=== PATIENT | female | born 1950 | race Caucasian/White ===

== ENCOUNTER → 2018-12-14 | Outpatient (CLI) | payer MEDICARE ==
[~2018-12-14] MED LIST: IOPAMIDOL 370 MG/ML 200 ML INFUS..BTL INJ ONE; SODIUM CHLORIDE 0.9% 100 ML 100 ML ONE
[2018-12-14 09:43] LABS: BLOOD UREA NITROGEN 12 mg/dL (7-26); BUN/CREATININE RATIO 16 (6-25); CREATININE, SERUM 0.77 mg/dL (0.57-1.11); EST GLOMERULAR FILTRATION RATE > 60 ML/MIN (60-)
--- NOTE | 2018-12-14 11:01 | Diagnostic Imaging Report ---
EXAMINATION: CT angiography of the abdomen, pelvis, and lower extremities with contrast. TECHNIQUE: Spiral CT images of the abdomen and pelvis and lower extremities were performed from the lung bases to the feet after the intravenous administration of 100 cc Isovue-370. Coronal and sagittal reformatted images were obtained. For optimization of anatomic definition, dedicated volume rendered reconstructions were generated on a stand-alone workstation under the direct supervision of the interpreting physician. COMPARISON: None. CLINICAL HISTORY:Right leg pain, peripheral vascular disease. DISCUSSION: Vasculature: Atherosclerotic plaque, calcified and noncalcified, involving the abdominal aorta and major visceral branches. The abdominal aorta is nonaneurysmal. There is mild SMA origin stenosis. Celiac, single bilateral renal artery, and LOLY origins are patent. Iliac inflow: Right: Patent proximal common iliac stent. Diffuse calcified and noncalcified atherosclerotic plaque throughout the iliac arterial system without significant stenosis. Internal iliac artery and central visceral branches are patent. Left: Patent proximal common iliac stent. Calcified and noncalcified atherosclerotic plaque elsewhere in the iliac arterial system, without significant stenosis. Internal iliac artery and central visceral branches are patent. Femoral-popliteal segments: Right: Common femoral artery is patent. Long segment stent complex extends from the distal common femoral artery through the entire course of the superficial femoral artery, terminating deep to the adductor hiatus at the above knee popliteal artery. There are scattered foci of moderate-severe in stent restenosis, with suspected critical stenosis proximally (series 3 image 131). The profunda femoris and muscular branches are patent. The above-knee and below-knee segments of popliteal artery are patent, without significant stenosis . Left: The common femoral artery is patent. The femoral bifurcation is patent. The profunda femoris artery and muscular branches are patent. The superficial femoral artery is patent with multiple foci of calcified and noncalcified atherosclerotic plaque. Short segment moderate stenosis at the abductor hiatus (series 3 image 179). The above-knee and below-knee popliteal artery are patent. Runoff: Right: Variant runoff anatomy with an early origin of the anterior tibial artery from the above knee popliteal artery at the level of the intercondylar notch of the femur (series 3 image 227). The anterior tibial artery is patent proximally, though occludes at the level of the proximal calf. The tibioperoneal trunk is patent. 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 Left: The anterior tibial artery is patent and is visualized to its continuation as the dorsalis pedis artery. The tibioperoneal trunk is patent. The posterior tibial artery is suspected to be hypoplastic, with a patent peroneal artery, which bifurcates at the tibiotalar joint and continues as the lateral plantar artery. ABDOMEN/PELVIS: LOWER THORAX:5 mm right lower lobe nodule (series 3 image 9). Postsurgical changes of median sternotomy and coronary artery bypass partially visualized. HEPATOBILIARY: No focal hepatic lesions. No intra-or extrahepatic biliary ductal dilation. The gallbladder has been removed. SPLEEN: Heterogeneity of splenic attenuation reflects arterial phase of scan. PANCREAS: 8 mm hyperenhancing nodule within the pancreatic tail (series 3 image 39). ADRENALS: No adrenal nodules. KIDNEYS/URETERS: No hydronephrosis, stones, or solid mass lesions. PELVIC ORGANS/BLADDER: Urinary bladder is incompletely distended. Uterus is anteflexed and appears normal. No adnexal mass. PERITONEUM/RETROPERITONEUM: No ascites. No pneumoperitoneum. LYMPH NODES: No pelvic sidewall, retroperitoneal, or mesenteric lymphadenopathy. VESSELS: As above. GI TRACT: The visualized large bowel shows no distention or wall thickening. Scattered descending and sigmoid colon diverticula without evidence of diverticulitis. Normal appendix. Stomach is collapsed with prominent rugal folds. No small bowel dilatation to suggest obstruction. BONES AND SOFT TISSUE: No osseous destructive lesions. Surgical clips along the medial right thigh related to venous graft harvest. Nonspecific subcutaneous edema involving the right calf and ankle. Asymmetric density in the right breast (series 3 image 27). IMPRESSION: Calcified and noncalcified atherosclerotic vascular disease throughout the abdominopelvic and lower extremity arterial systems. Nonaneurysmal abdominal aorta without significant visceral branch stenosis. Patent kissing common iliac arterial stents, without significant iliac inflow stenosis. Status post long segment endovascular stenting of the distal right common femoral artery and superficial femoral artery, with multiple foci of moderate-severe in-stent restenosis. Short segment focus of moderate stenosis in the distal left superficial femoral artery. 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 Single vessel runoff supplied by hypertrophic peroneal artery. 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 Two-vessel runoff supplied by hypertrophic peroneal artery and anterior tibial artery. Nonvascular findings include: 8 mm hyperenhancing nodule in the pancreatic tail which may represent a neuroendocrine tumor. Further characterization with MRI of the abdomen with and without contrast (pancreatic protocol) is suggested. 5 mm right lower lobe pulmonary nodule for which follow-up CT scan of the chest without contrast is suggested in one year if the patient has a history of smoking or is at otherwise increased risk of malignancy. Asymmetric right breast tissue should be evaluated by mammography. Large bowel diverticulosis without findings of diverticulitis. Signed by: Dr. Clay Shetty M.D. on 12/14/2018 10:57 AM
== END ==
LOC: CT 08:18
PROVIDERS: ATTEND Thoracic Surgery (Cardiothoracic Vascular Surgery)
DX: I70.0 Atherosclerosis of aorta (principal); I73.9 Peripheral vascular disease, unspecified
CPT/HCPCS: 36415; 75635; 82565; 84520; Q9967

== ENCOUNTER 2020-12-05 16:18 | Outpatient (RCR) | payer MEDICARE ==
[2020-12-05] MEDS ORDERED: LIDOCAINE VISC 2% SOLN 15 ML UDC ONE (17:00)
[2020-12-24] MEDS ORDERED: LIDOCAINE VISC 2% SOLN 15 ML UDC ONE (17:42)
[2020-12-24] MEDS ORDERED: MUPIROCIN 2% OINT 22 GM TUBE ONE (17:42)
[2020-12-24] MEDS ORDERED: LIDOCAINE/PRILOCAINE 2.5-2.5% KIT ONE (17:42)
[2020-12-24] MEDS ORDERED: MINERAL OIL/PETROLAT/GLYCERI 6OZ BTL ONE (17:42)
== END 2020-12-31 ==
LOC: WCC 16:18
PROVIDERS: ATTEND Family Medicine
DX: E11.628 Type 2 diabetes mellitus with other skin complications (principal); I87.311 Chronic venous hypertension (idiopathic) with ulcer of right lower extremity; L97.311 Non-pressure chronic ulcer of right ankle limited to breakdown of skin; I87.2 Venous insufficiency (chronic) (peripheral); R60.0 Localized edema; I10 Essential (primary) hypertension

== ENCOUNTER → 2021-01-08 | Outpatient (CLI) | payer MEDICARE | LOC: RAD 13:34 | PROVIDERS: ATTEND Family Medicine | DX: I87.2 Venous insufficiency (chronic) (peripheral) (principal); R60.0 Localized edema | CPT/HCPCS: 93922; 93925; 93970 ==

== ENCOUNTER 2021-01-09 08:42 | Outpatient (RCR) | payer MEDICARE ==
[2021-01-20] MEDS ORDERED: PLAVIX75 MG PO (05:39)
[2021-01-20] MEDS ORDERED: METFORMIN HCL500 MG PO (05:39)
[2021-01-20] MEDS ORDERED: METOPROLOL TART25 MG PO (05:39)
[2021-01-20] MEDS ORDERED: SIMVASTATIN40 MG PO (05:39)
[2021-01-20] MEDS ORDERED: CLONIDINE HCL0.1 MG PO (05:39)
[2021-01-20] MEDS ORDERED: ASPIRIN81 MG PO (05:39)
== END 2021-01-30 ==
LOC: WCC 08:42
PROVIDERS: ATTEND Family Medicine
DX: E11.628 Type 2 diabetes mellitus with other skin complications (principal); I87.311 Chronic venous hypertension (idiopathic) with ulcer of right lower extremity; L97.811 Non-pressure chronic ulcer of other part of right lower leg limited to breakdown of skin; L97.311 Non-pressure chronic ulcer of right ankle limited to breakdown of skin; S91.104A Unspecified open wound of right lesser toe(s) without damage to nail, initial encounter; S91.204A Unspecified open wound of right lesser toe(s) with damage to nail, initial encounter; I87.2 Venous insufficiency (chronic) (peripheral); S80.821A Blister (nonthermal), right lower leg, initial encounter; R60.0 Localized edema; I10 Essential (primary) hypertension; W22.09XA Striking against other stationary object, initial encounter

== ENCOUNTER 2021-01-20 05:07 | Inpatient (IN) | payer MEDICARE ==
[~2021-01-20] VITALS: Ht 165.1 cm; Wt 90.7 kg
[2021-01-20] MEDS ORDERED: METFORMIN HCL500 MG PO (05:39)
[2021-01-20] MEDS ORDERED: PLAVIX75 MG PO (05:39)
[2021-01-20] MEDS ORDERED: ASPIRIN81 MG PO (05:39)
[2021-01-20] MEDS ORDERED: METOPROLOL TART25 MG PO (05:39)
[2021-01-20] MEDS ORDERED: SIMVASTATIN40 MG PO (05:39)
[2021-01-20] MEDS ORDERED: CLONIDINE HCL0.1 MG PO (05:39)
[2021-01-20] MEDS ORDERED: SODIUM CHLORIDE 0.9% 1000ML 1,000 ML IV STA (05:41)
[2021-01-20] MEDS ORDERED: PIPERACILLIN/TAZOBACTAM 3.375 GM in SODIUM CHLORIDE 0.9% 50ML 50 ML IV STA (05:41)
[2021-01-20] MEDS ORDERED: VANCOMYCIN 1GM/NS 250 ML 250 ML IV ONE (05:45)
[2021-01-20 06:23] LABS: BASOPHILS % 0.3 % (0.0-1.0); EOSINOPHILS # (AUTO) 0.1 (0.0-0.4); EOSINOPHILS % 1.8 % (0.0-6.0); HEMATOCRIT 31.6 % (34.2-44.1); HEMOGLOBIN 10.3 g/dL (12.0-16.0); LYMPHOCYTES # (AUTO) 0.7 (1.0-3.2); LYMPHOCYTES % 10.7 % (18.0-39.1); MEAN CORPUSCULAR HEMOGLOBIN 28.8 pg (28-32); MEAN CORPUSCULAR HGB CONC 32.6 g/dL (31-35); MEAN CORPUSCULAR VOLUME 88.3 fL (81-99); MONOCYTES # (AUTO) 0.5 (0.2-0.8); NEUTROPHILS # (AUTO) 5.4 (2.1-6.9); NEUTROPHILS % 79.9 % (38.7-80.0); PLATELET COUNT 185 x10e3/uL (140-360); RED BLOOD COUNT 3.58 x10e6/uL (3.6-5.1); RED CELL DISTRIBUTION WIDTH 14.7 % (11.7-14.4)
[2021-01-20] MEDS ORDERED: MORPHINE SULFATE INJ 2 MG/ML SYR IV PRN (06:30)
[2021-01-20] MEDS ORDERED: SODIUM CHLORIDE 0.9% 1000ML 1,000 ML IV SCH (06:30)
[2021-01-20] MEDS ORDERED: ONDANSETRON HCL INJ 2MG/ML 2ML 2 MG/ML VIAL IV PRN (06:30)
[2021-01-20] MEDS ORDERED: DEXTROSE 50% SYRINGE 50 ML IV PRN (06:30)
[2021-01-20 06:38] LABS: ALBUMIN 2.8 g/dL (3.5-5.0); ALBUMIN/GLOBULIN RATIO 0.7 (0.8-2.0); ANION GAP 13.5 mmol/L (8-16); CALCIUM 8.7 mg/dL (8.4-10.2); CREATININE, SERUM 1.63 mg/dL (0.57-1.11); MAGNESIUM 1.7 MG/DL (1.3-2.1); POTASSIUM 4.5 mmol/L (3.5-5.1)
[2021-01-20 06:44] LABS: CREATINE KINASE MB 2.9 ng/mL (0-5.0)
[2021-01-20 06:54] LABS: B-TYPE NATRIURETIC PEPTIDE2 151.6 pg/mL (0-100)
[2021-01-20] MEDS ORDERED: TETANUS/DIPHTHERIA TOX ADULT 0.5 ML SYR IM ONE (07:15)
[2021-01-20] MEDS: INSULIN LISPRO 100 UNIT/1 ML 3ML VIAL SQ SCH ×4 (08:30→20:40)
[2021-01-20 12:36] LABS: CREATINE KINASE MB 6.9 ng/mL (0-5.0)
[2021-01-20] MEDS: PIPERACILLIN/TAZOBACTAM 2.25 GM in SODIUM CHLORIDE 0.9% 50ML 50 ML IV SCH ×3 (12:41→23:36)
[2021-01-20] MEDS: Vancomycin IV 1 GM in SODIUM CHLORIDE 0.9% 250ML 250 ML IV SCH (14:00)
[2021-01-20] MEDS: CLONIDINE HCL 0.1 MG TAB PO SCH ×2 (14:38→22:00)
[2021-01-20] MEDS: ASPIRIN 81 MG CHEW TAB PO SCH (14:38)
[2021-01-20] MEDS: CLOPIDOGREL BISULFATE 75 MG TAB PO SCH (14:38)
[2021-01-20] MEDS ORDERED: DIPHENHYDRAMINE HCL 25 MG CAP PO PRN (16:00)
[2021-01-20] MEDS: METOPROLOL TARTRATE 25 MG TAB PO SCH (17:30)
[2021-01-20] MEDS: ENOXAPARIN SOD INJ 40 MG/0.4 ML SYR SC SCH (18:00)
[2021-01-20] MEDS: SIMVASTATIN 40 MG TAB PO SCH (20:39)
[2021-01-21 01:19] LABS: MAGNESIUM 1.5 MG/DL (1.3-2.1)
[2021-01-21 01:30] LABS: CREATINE KINASE MB 11.9 ng/mL (0-5.0)
[2021-01-21 01:39] LABS: THYROID STIMULATING HORMONE 0.716 uIU/mL (0.350-4.940)
[2021-01-21 01:43] LABS: ANION GAP 12.3 mmol/L (8-16); CALCIUM 8.5 mg/dL (8.4-10.2); CREATININE, SERUM 1.19 mg/dL (0.57-1.11); POTASSIUM 5.3 mmol/L (3.5-5.1)
[2021-01-21] MEDS ORDERED: SODIUM CHLORIDE 0.9% 500ML 500 ML ONE (03:17)
[2021-01-21] MEDS: CLONIDINE HCL 0.1 MG TAB PO SCH ×3 (05:02→22:00)
[2021-01-21] MEDS: PIPERACILLIN/TAZOBACTAM 2.25 GM in SODIUM CHLORIDE 0.9% 50ML 50 ML IV SCH ×3 (05:02→18:00)
[2021-01-21 05:52] LABS: BASOPHILS # (AUTO) 0.1 (0.0-0.1); BASOPHILS % 0.6 % (0.0-1.0); EOSINOPHILS # (AUTO) 0.1 (0.0-0.4); EOSINOPHILS % 1.1 % (0.0-6.0); HEMATOCRIT 35.1 % (34.2-44.1); HEMOGLOBIN 11.4 g/dL (12.0-16.0); LYMPHOCYTES # (AUTO) 1.2 (1.0-3.2); LYMPHOCYTES % 9.8 % (18.0-39.1); MEAN CORPUSCULAR HEMOGLOBIN 29.2 pg (28-32); MEAN CORPUSCULAR HGB CONC 32.5 g/dL (31-35); MONOCYTES # (AUTO) 0.7 (0.2-0.8); MONOCYTES % 5.9 % (4.4-11.3); NEUTROPHILS # (AUTO) 9.8 (2.1-6.9); NEUTROPHILS % 82.1 % (38.7-80.0); PLATELET COUNT 212 x10e3/uL (140-360); RED CELL DISTRIBUTION WIDTH 14.8 % (11.7-14.4)
[2021-01-21 06:13] LABS: ALBUMIN 2.7 g/dL (3.5-5.0); ALBUMIN/GLOBULIN RATIO 0.6 (0.8-2.0); ANION GAP 14.4 mmol/L (8-16); CALCIUM 8.5 mg/dL (8.4-10.2); CREATININE, SERUM 1.16 mg/dL (0.57-1.11); POTASSIUM 4.4 mmol/L (3.5-5.1)
[2021-01-21] MEDS: INSULIN LISPRO 100 UNIT/1 ML 3ML VIAL SQ SCH ×4 (07:30→21:00)
[2021-01-21] MEDS: METOPROLOL TARTRATE 25 MG TAB PO SCH ×2 (08:22→17:00)
[2021-01-21] MEDS: MUPIROCIN 2% OINT 22 GM TUBE TOP SCH (09:00)
[2021-01-21] MEDS ORDERED: ASPIRIN 81 MG CHEW TAB PO SCH (09:00)
[2021-01-21] MEDS ORDERED: CLOPIDOGREL BISULFATE 75 MG TAB PO SCH (09:00)
[2021-01-21] MEDS: CLOPIDOGREL BISULFATE 75 MG TAB PO SCH (10:00)
[2021-01-21] MEDS: ASPIRIN 81 MG CHEW TAB PO SCH (10:00)
[2021-01-21] MEDS: ENOXAPARIN SOD INJ 40 MG/0.4 ML SYR SC SCH (10:00)
[2021-01-21] MEDS: Vancomycin IV 1 GM in SODIUM CHLORIDE 0.9% 250ML 250 ML IV SCH (12:00)
[2021-01-21] MEDS ORDERED: SODIUM CHLORIDE 0.9% 1000ML 1,000 ML ONE (18:26)
[2021-01-21] MEDS ORDERED: SODIUM CHLORIDE 0.9% 100 ML ONE (19:55)
[2021-01-21] MEDS ORDERED: IOPAMIDOL 370 MG/ML 200 ML INFUS..BTL INJ ONE (19:56)
[2021-01-21] MEDS: SIMVASTATIN 40 MG TAB PO SCH (21:00)
[2021-01-22 04:00] VITALS: BP 175/58
[2021-01-22] MEDS: PIPERACILLIN/TAZOBACTAM 2.25 GM in SODIUM CHLORIDE 0.9% 50ML 50 ML IV SCH ×5 (06:00→17:30)
[2021-01-22] MEDS: CLONIDINE HCL 0.1 MG TAB PO SCH ×3 (06:00→22:00)
[2021-01-22] MEDS: INSULIN LISPRO 100 UNIT/1 ML 3ML VIAL SQ SCH ×4 (07:30→21:00)
[2021-01-22] MEDS: MUPIROCIN 2% OINT 22 GM TUBE TOP SCH (09:00)
[2021-01-22] MEDS ORDERED: SODIUM CHLORIDE 0.9% 1000ML 1,000 ML IV SCH (09:00)
[2021-01-22] MEDS: ASPIRIN 81 MG CHEW TAB PO SCH (09:00)
[2021-01-22] MEDS: METOPROLOL TARTRATE 25 MG TAB PO SCH ×2 (09:00→17:30)
[2021-01-22 10:38] LABS: ALBUMIN 2.4 g/dL (3.5-5.0); ALBUMIN/GLOBULIN RATIO 0.6 (0.8-2.0); ANION GAP 12.6 mmol/L (8-16); CALCIUM 8.5 mg/dL (8.4-10.2); CHOL/HDL RATIO 3.5 (3.0-3.6); CREATININE, SERUM 0.97 mg/dL (0.57-1.11); POTASSIUM 4.6 mmol/L (3.5-5.1)
[2021-01-22 10:39] LABS: BASOPHILS % 0.4 % (0.0-1.0); EOSINOPHILS # (AUTO) 0.5 (0.0-0.4); EOSINOPHILS % 2.7 % (0.0-6.0); HEMATOCRIT 32.3 % (34.2-44.1); HEMOGLOBIN 10.2 g/dL (12.0-16.0); LYMPHOCYTES # (AUTO) 0.8 (1.0-3.2); LYMPHOCYTES % 10.5 % (18.0-39.1); MEAN CORPUSCULAR HEMOGLOBIN 28.4 pg (28-32); MEAN CORPUSCULAR HGB CONC 31.6 g/dL (31-35); MONOCYTES # (AUTO) 0.5 (0.2-0.8); MONOCYTES % 6.3 % (4.4-11.3); NEUTROPHILS # (AUTO) 5.8 (2.1-6.9); NEUTROPHILS % 79.6 % (38.7-80.0); PLATELET COUNT 187 x10e3/uL (140-360); RED BLOOD COUNT 3.59 x10e6/uL (3.6-5.1); RED CELL DISTRIBUTION WIDTH 14.8 % (11.7-14.4)
[2021-01-22] MEDS ORDERED: MIDAZOLAM HCL 2 MG/2 ML VIAL ONE (11:37)
[2021-01-22] MEDS ORDERED: FENTANYL CITRATE/PF 100MCG/2 ML INJ ONE (11:37)
[2021-01-22] MEDS ORDERED: LIDOCAINE HCL 2% LOCAL 20 ML VIAL ONE (11:37)
[2021-01-22] MEDS ORDERED: IOPAMIDOL 300MG/ML 100 ML INFUS..BTL IV ONE (11:38)
[2021-01-22] MEDS ORDERED: HEPARIN SOD/SOD CHLORIDE 2,000 ML ONE (11:38)
[2021-01-22] MEDS ORDERED: SODIUM CHLORIDE 0.9% 1000ML 1,000 ML ONE (11:38)
[2021-01-22] MEDS: Vancomycin IV 1 GM in SODIUM CHLORIDE 0.9% 250ML 250 ML IV SCH (12:00)
[2021-01-22] MEDS: SODIUM CHLORIDE 0.9% 1000ML 1,000 ML IV SCH (14:15)
[2021-01-22] MEDS ORDERED: MAGNESIUM HYDROXIDE 30 ML UDC PO PRN (14:15)
[2021-01-22] MEDS: SENNA-S TABLET PO SCH (17:30)
[2021-01-22] MEDS: HYDROCODONE/APAP 10MG-325MG TAB PO PRN (19:12)
[2021-01-22 20:00] VITALS: BP 178/59
[2021-01-22] MEDS: SIMVASTATIN 40 MG TAB PO SCH (21:00)
[2021-01-23] VITALS (8 sets, daily range): BP systolic 153–180; BP diastolic 52–89
[2021-01-23] MEDS: SODIUM CHLORIDE 0.9% 1000ML 1,000 ML IV SCH ×2 (03:35→17:45)
[2021-01-23 05:55] LABS: BASOPHILS % 0.6 % (0.0-1.0); EOSINOPHILS # (AUTO) 0.2 (0.0-0.4); EOSINOPHILS % 2.2 % (0.0-6.0); HEMATOCRIT 31.1 % (34.2-44.1); LYMPHOCYTES # (AUTO) 0.9 (1.0-3.2); MEAN CORPUSCULAR HEMOGLOBIN 28.8 pg (28-32); MEAN CORPUSCULAR HGB CONC 32.2 g/dL (31-35); MEAN CORPUSCULAR VOLUME 89.6 fL (81-99); MONOCYTES # (AUTO) 0.5 (0.2-0.8); NEUTROPHILS # (AUTO) 5.1 (2.1-6.9); NEUTROPHILS % 76.6 % (38.7-80.0); PLATELET COUNT 190 x10e3/uL (140-360); RED BLOOD COUNT 3.47 x10e6/uL (3.6-5.1); RED CELL DISTRIBUTION WIDTH 14.7 % (11.7-14.4)
[2021-01-23] MEDS: PIPERACILLIN/TAZOBACTAM 2.25 GM in SODIUM CHLORIDE 0.9% 50ML 50 ML IV SCH ×5 (06:00→17:06)
[2021-01-23] MEDS: CLONIDINE HCL 0.1 MG TAB PO SCH ×3 (06:00→21:00)
[2021-01-23 06:30] LABS: ALBUMIN 2.2 g/dL (3.5-5.0); ALBUMIN/GLOBULIN RATIO 0.6 (0.8-2.0); ANION GAP 11.2 mmol/L (8-16); CALCIUM 7.9 mg/dL (8.4-10.2); CREATININE, SERUM 0.81 mg/dL (0.57-1.11); POTASSIUM 4.2 mmol/L (3.5-5.1)
[2021-01-23] MEDS: ASPIRIN 81 MG CHEW TAB PO SCH (09:29)
[2021-01-23] MEDS: METOPROLOL TARTRATE 25 MG TAB PO SCH ×2 (09:30→17:05)
[2021-01-23] MEDS: SENNA-S TABLET PO SCH ×2 (09:32→17:06)
[2021-01-23] MEDS: MUPIROCIN 2% OINT 22 GM TUBE TOP SCH (09:32)
[2021-01-23] MEDS: INSULIN LISPRO 100 UNIT/1 ML 3ML VIAL SQ SCH ×4 (09:39→21:00)
[2021-01-23] MEDS: AMLODIPINE BESYLATE 5 MG TAB PO SCH (09:39)
[2021-01-23] MEDS ORDERED: CLOPIDOGREL BISULFATE 75 MG TAB PO ONE (11:45)
[2021-01-23] MEDS: Vancomycin IV 1 GM in SODIUM CHLORIDE 0.9% 250ML 250 ML IV SCH (12:22)
[2021-01-23] MEDS: HYDROCODONE/APAP 10MG-325MG TAB PO PRN ×2 (12:42→21:19)
[2021-01-23] MEDS: SIMVASTATIN 40 MG TAB PO SCH (20:59)
[2021-01-24] VITALS (8 sets, daily range): BP systolic 141–188; BP diastolic 54–122
[2021-01-24] MEDS: PIPERACILLIN/TAZOBACTAM 2.25 GM in SODIUM CHLORIDE 0.9% 50ML 50 ML IV SCH ×4 (00:35→16:45)
[2021-01-24] MEDS: MUPIROCIN 2% OINT 22 GM TUBE TOP SCH ×2 (02:31→08:56)
[2021-01-24] MEDS: HYDROCODONE/APAP 10MG-325MG TAB PO PRN ×2 (04:58→11:45)
[2021-01-24] MEDS: SODIUM CHLORIDE 0.9% 1000ML 1,000 ML IV SCH (05:03)
[2021-01-24] MEDS: CLONIDINE HCL 0.1 MG TAB PO SCH ×3 (05:03→21:20)
[2021-01-24] MEDS: ASPIRIN 81 MG CHEW TAB PO SCH (08:54)
[2021-01-24] MEDS: INSULIN LISPRO 100 UNIT/1 ML 3ML VIAL SQ SCH ×4 (08:54→21:23)
[2021-01-24] MEDS: AMLODIPINE BESYLATE 5 MG TAB PO SCH (08:55)
[2021-01-24] MEDS: SENNA-S TABLET PO SCH ×2 (08:55→16:45)
[2021-01-24] MEDS: METOPROLOL TARTRATE 25 MG TAB PO SCH ×2 (08:55→16:44)
[2021-01-24] MEDS: CLOPIDOGREL BISULFATE 75 MG TAB PO SCH (08:55)
[2021-01-24] MEDS: Vancomycin IV 1 GM in SODIUM CHLORIDE 0.9% 250ML 250 ML IV SCH (13:52)
[2021-01-24] MEDS: ENOXAPARIN SOD INJ 40 MG/0.4 ML SYR SC SCH (16:45)
[2021-01-24] MEDS: SIMVASTATIN 40 MG TAB PO SCH (22:48)
[2021-01-25] VITALS (8 sets, daily range): BP systolic 160–197; BP diastolic 52–79
[2021-01-25] MEDS: PIPERACILLIN/TAZOBACTAM 2.25 GM in SODIUM CHLORIDE 0.9% 50ML 50 ML IV SCH ×4 (00:42→18:00)
[2021-01-25] MEDS: HYDROCODONE/APAP 10MG-325MG TAB PO PRN ×3 (00:43→15:59)
[2021-01-25 05:30] LABS: BASOPHILS % 0.6 % (0.0-1.0); EOSINOPHILS # (AUTO) 0.2 (0.0-0.4); EOSINOPHILS % 2.4 % (0.0-6.0); HEMOGLOBIN 10.2 g/dL (12.0-16.0); LYMPHOCYTES # (AUTO) 0.9 (1.0-3.2); LYMPHOCYTES % 13.3 % (18.0-39.1); MEAN CORPUSCULAR HGB CONC 31.9 g/dL (31-35); MEAN CORPUSCULAR VOLUME 87.9 fL (81-99); MONOCYTES # (AUTO) 0.6 (0.2-0.8); MONOCYTES % 8.4 % (4.4-11.3); NEUTROPHILS % 74.4 % (38.7-80.0); PLATELET COUNT 218 x10e3/uL (140-360); RED BLOOD COUNT 3.64 x10e6/uL (3.6-5.1); RED CELL DISTRIBUTION WIDTH 14.7 % (11.7-14.4)
[2021-01-25 05:54] LABS: ANION GAP 12.7 mmol/L (8-16); CALCIUM 8.5 mg/dL (8.4-10.2); CREATININE, SERUM 0.71 mg/dL (0.57-1.11); POTASSIUM 3.7 mmol/L (3.5-5.1)
[2021-01-25] MEDS: INSULIN LISPRO 100 UNIT/1 ML 3ML VIAL SQ SCH ×4 (07:30→22:49)
[2021-01-25] MEDS: CLONIDINE HCL 0.1 MG TAB PO SCH ×3 (07:48→22:38)
[2021-01-25] MEDS: MUPIROCIN 2% OINT 22 GM TUBE TOP SCH (09:00)
[2021-01-25] MEDS: AMLODIPINE BESYLATE 5 MG TAB PO SCH (09:00)
[2021-01-25] MEDS: SENNA-S TABLET PO SCH ×2 (09:00→16:32)
[2021-01-25] MEDS: CLOPIDOGREL BISULFATE 75 MG TAB PO SCH (09:00)
[2021-01-25] MEDS: ASPIRIN 81 MG CHEW TAB PO SCH (09:00)
[2021-01-25] MEDS: METOPROLOL TARTRATE 25 MG TAB PO SCH ×2 (09:00→16:31)
[2021-01-25] MEDS: Vancomycin IV 1 GM in SODIUM CHLORIDE 0.9% 250ML 250 ML IV SCH (12:00)
[2021-01-25] MEDS: ENOXAPARIN SOD INJ 40 MG/0.4 ML SYR SC SCH (16:32)
[2021-01-25] MEDS: SIMVASTATIN 40 MG TAB PO SCH (22:36)
[2021-01-26] VITALS (8 sets, daily range): BP systolic 171–192; BP diastolic 59–74
[2021-01-26] MEDS: HYDROMORPHONE 1MG/1ML INJ IV PRN (00:03)
[2021-01-26] MEDS: PIPERACILLIN/TAZOBACTAM 2.25 GM in SODIUM CHLORIDE 0.9% 50ML 50 ML IV SCH ×4 (00:03→17:05)
[2021-01-26] MEDS: CLONIDINE HCL 0.1 MG TAB PO SCH ×3 (06:27→21:57)
[2021-01-26] MEDS: INSULIN LISPRO 100 UNIT/1 ML 3ML VIAL SQ SCH ×4 (07:30→21:57)
[2021-01-26] MEDS: SENNA-S TABLET PO SCH ×2 (09:00→17:00)
[2021-01-26] MEDS: AMLODIPINE BESYLATE 5 MG TAB PO SCH (09:00)
[2021-01-26] MEDS: METOPROLOL TARTRATE 25 MG TAB PO SCH ×2 (09:00→17:00)
[2021-01-26] MEDS: MUPIROCIN 2% OINT 22 GM TUBE TOP SCH (09:00)
[2021-01-26] MEDS: CLOPIDOGREL BISULFATE 75 MG TAB PO SCH (09:00)
[2021-01-26] MEDS: ASPIRIN 81 MG CHEW TAB PO SCH (09:00)
[2021-01-26] MEDS: HYDROCODONE/APAP 10MG-325MG TAB PO PRN ×2 (11:45→17:55)
[2021-01-26] MEDS: Vancomycin IV 1 GM in SODIUM CHLORIDE 0.9% 250ML 250 ML IV SCH (12:00)
[2021-01-26 12:53] LABS: BASOPHILS # (AUTO) 0.1 (0.0-0.1); BASOPHILS % 0.8 % (0.0-1.0); EOSINOPHILS # (AUTO) 0.2 (0.0-0.4); EOSINOPHILS % 2.9 % (0.0-6.0); HEMATOCRIT 33.4 % (34.2-44.1); HEMOGLOBIN 10.4 g/dL (12.0-16.0); LYMPHOCYTES # (AUTO) 0.7 (1.0-3.2); LYMPHOCYTES % 9.3 % (18.0-39.1); MEAN CORPUSCULAR HEMOGLOBIN 27.7 pg (28-32); MEAN CORPUSCULAR HGB CONC 31.1 g/dL (31-35); MEAN CORPUSCULAR VOLUME 89.1 fL (81-99); MONOCYTES # (AUTO) 0.5 (0.2-0.8); MONOCYTES % 6.3 % (4.4-11.3); NEUTROPHILS # (AUTO) 6.2 (2.1-6.9); NEUTROPHILS % 79.8 % (38.7-80.0); PLATELET COUNT 250 x10e3/uL (140-360); RED BLOOD COUNT 3.75 x10e6/uL (3.6-5.1); RED CELL DISTRIBUTION WIDTH 14.6 % (11.7-14.4)
[2021-01-26 13:06] LABS: INR 1.2; PROTHROMBIN TIME 15.9 seconds (11.9-14.5)
[2021-01-26 13:30] LABS: ANION GAP 16.9 mmol/L (8-16); CALCIUM 8.3 mg/dL (8.4-10.2); CREATININE, SERUM 0.73 mg/dL (0.57-1.11); POTASSIUM 3.9 mmol/L (3.5-5.1)
[2021-01-26] MEDS: ENOXAPARIN SOD INJ 40 MG/0.4 ML SYR SC SCH (17:00)
[2021-01-26] MEDS: SIMVASTATIN 40 MG TAB PO SCH (21:56)
[2021-01-27] VITALS (8 sets, daily range): BP systolic 171–198; BP diastolic 51–72
[2021-01-27] MEDS: PIPERACILLIN/TAZOBACTAM 2.25 GM in SODIUM CHLORIDE 0.9% 50ML 50 ML IV SCH ×4 (00:46→17:21)
[2021-01-27] MEDS: CLONIDINE HCL 0.1 MG TAB PO SCH ×3 (06:00→21:59)
[2021-01-27] MEDS: INSULIN LISPRO 100 UNIT/1 ML 3ML VIAL SQ SCH ×4 (07:30→21:00)
[2021-01-27] MEDS: METOPROLOL TARTRATE 25 MG TAB PO SCH ×2 (08:31→17:00)
[2021-01-27] MEDS: SENNA-S TABLET PO SCH ×2 (08:32→17:00)
[2021-01-27] MEDS: AMLODIPINE BESYLATE 5 MG TAB PO SCH (08:32)
[2021-01-27] MEDS: MUPIROCIN 2% OINT 22 GM TUBE TOP SCH (08:32)
[2021-01-27] MEDS: HYDROCODONE/APAP 10MG-325MG TAB PO PRN ×2 (11:11→18:33)
[2021-01-27] MEDS: Vancomycin IV 1 GM in SODIUM CHLORIDE 0.9% 250ML 250 ML IV SCH (12:00)
[2021-01-27] MEDS: ENOXAPARIN SOD INJ 40 MG/0.4 ML SYR SC SCH (15:38)
[2021-01-27] MEDS: SIMVASTATIN 40 MG TAB PO SCH (21:58)
[2021-01-27] MEDS: HYDROMORPHONE 1MG/1ML INJ IV PRN (22:00)
[2021-01-27] MEDS: CARVEDILOL 12.5 MG TAB PO SCH (22:37)
[2021-01-28] VITALS (7 sets, daily range): BP systolic 141–180; BP diastolic 43–64
[2021-01-28] MEDS: PIPERACILLIN/TAZOBACTAM 2.25 GM in SODIUM CHLORIDE 0.9% 50ML 50 ML IV SCH ×4 (05:35→12:37)
[2021-01-28] MEDS: CLONIDINE HCL 0.1 MG TAB PO SCH ×3 (05:55→22:53)
[2021-01-28] MEDS: INSULIN LISPRO 100 UNIT/1 ML 3ML VIAL SQ SCH ×4 (07:30→21:00)
[2021-01-28] MEDS ORDERED: MUPIROCIN 2% OINT 22 GM TUBE ONE (07:56)
[2021-01-28] MEDS ORDERED: BETAMETHASONE DISODIUM PHOS 6 MG/ML VIAL ONE (07:56)
[2021-01-28] MEDS ORDERED: BUPIVACAINE HCL 0.5% INJ 30 ML VIAL INJ ONE (07:56)
[2021-01-28] MEDS ORDERED: LIDOCAINE HCL 1% LOCAL INJ 20 ML VIAL ONE (07:56)
[2021-01-28] MEDS ORDERED: SODIUM CHLORIDE 0.9% 250ML 0 ML ONE (08:16)
[2021-01-28] MEDS ORDERED: Vancomycin IV 500 MG ONE (08:17)
[2021-01-28] MEDS ORDERED: SODIUM CHLORIDE 0.9% 500ML 500 ML ONE (08:19)
[2021-01-28] MEDS ORDERED: SEVOFLURANE INHAL SOLN 250 ML PEN BTL ONE (10:07)
[2021-01-28] MEDS ORDERED: LIDOCAINE HCL 2% LOCAL INJ 5 ML SDV VIAL INJ ONE (10:07)
[2021-01-28] MEDS ORDERED: LIDOCAINE HCL 2% JELLY 5 ML TUBE ONE (10:07)
[2021-01-28] MEDS ORDERED: ONDANSETRON HCL INJ 2MG/ML 2ML 2 MG/ML VIAL ONE (10:07)
[2021-01-28] MEDS ORDERED: POVIDONE IODINE 0.05% 0.05 % ML PO ONE (10:07)
[2021-01-28] MEDS ORDERED: PROPOFOL IV EMULSION 10 MG/ML 20 ML VIAL ONE (10:07)
[2021-01-28] MEDS ORDERED: FENTANYL CITRATE/PF 100MCG/2 ML INJ ONE (12:28)
[2021-01-28] MEDS: CARVEDILOL 12.5 MG TAB PO SCH ×2 (12:38→16:50)
[2021-01-28] MEDS: AMLODIPINE BESYLATE 5 MG TAB PO SCH (12:38)
[2021-01-28] MEDS: SENNA-S TABLET PO SCH ×2 (12:38→16:50)
[2021-01-28] MEDS: ASPIRIN 81 MG CHEW TAB PO SCH ×2 (12:38→12:39)
[2021-01-28] MEDS: CLOPIDOGREL BISULFATE 75 MG TAB PO SCH (12:39)
[2021-01-28] MEDS: Vancomycin IV 1 GM in SODIUM CHLORIDE 0.9% 250ML 250 ML IV SCH (13:15)
[2021-01-28] MEDS: ENOXAPARIN SOD INJ 40 MG/0.4 ML SYR SC SCH (16:41)
[2021-01-28] MEDS: HYDROCODONE/APAP 10MG-325MG TAB PO PRN (17:30)
[2021-01-28] MEDS: SIMVASTATIN 40 MG TAB PO SCH (21:00)
[2021-01-28] MEDS: HYDROMORPHONE 1MG/1ML INJ IV PRN (22:49)
[2021-01-29] VITALS (9 sets, daily range): BP systolic 134–167; BP diastolic 42–57
[2021-01-29 06:26] LABS: BASOPHILS % 0.7 % (0.0-1.0); EOSINOPHILS # (AUTO) 0.2 (0.0-0.4); HEMATOCRIT 31.5 % (34.2-44.1); HEMOGLOBIN 9.9 g/dL (12.0-16.0); LYMPHOCYTES # (AUTO) 1.1 (1.0-3.2); LYMPHOCYTES % 17.5 % (18.0-39.1); MEAN CORPUSCULAR HEMOGLOBIN 28.2 pg (28-32); MEAN CORPUSCULAR HGB CONC 31.4 g/dL (31-35); MEAN CORPUSCULAR VOLUME 89.7 fL (81-99); MONOCYTES # (AUTO) 0.6 (0.2-0.8); MONOCYTES % 10.6 % (4.4-11.3); NEUTROPHILS % 66.5 % (38.7-80.0); PLATELET COUNT 202 x10e3/uL (140-360); RED BLOOD COUNT 3.51 x10e6/uL (3.6-5.1); RED CELL DISTRIBUTION WIDTH 15.5 % (11.7-14.4)
[2021-01-29] MEDS: CLONIDINE HCL 0.1 MG TAB PO SCH ×3 (06:43→22:00)
[2021-01-29 06:57] LABS: ANION GAP 11.6 mmol/L (8-16); CALCIUM 8.2 mg/dL (8.4-10.2); CREATININE, SERUM 0.79 mg/dL (0.57-1.11); POTASSIUM 3.6 mmol/L (3.5-5.1)
[2021-01-29] MEDS: CARVEDILOL 12.5 MG TAB PO SCH ×2 (08:50→17:59)
[2021-01-29] MEDS: SENNA-S TABLET PO SCH ×2 (08:50→18:35)
[2021-01-29] MEDS: CLOPIDOGREL BISULFATE 75 MG TAB PO SCH (08:50)
[2021-01-29] MEDS: INSULIN LISPRO 100 UNIT/1 ML 3ML VIAL SQ SCH ×4 (08:50→21:00)
[2021-01-29] MEDS: ASPIRIN 81 MG CHEW TAB PO SCH (08:50)
[2021-01-29] MEDS: AMLODIPINE BESYLATE 5 MG TAB PO SCH (08:50)
[2021-01-29] MEDS: HYDROMORPHONE 1MG/1ML INJ IV PRN ×4 (08:50→20:47)
[2021-01-29] MEDS: Vancomycin IV 1 GM in SODIUM CHLORIDE 0.9% 250ML 250 ML IV SCH (11:53)
[2021-01-29] MEDS: HYDROCODONE/APAP 10MG-325MG TAB PO PRN (12:56)
[2021-01-29] MEDS: ENOXAPARIN SOD INJ 40 MG/0.4 ML SYR SC SCH (17:59)
[2021-01-29] MEDS: SIMVASTATIN 40 MG TAB PO SCH (20:56)
[2021-01-29] MEDS ORDERED: INSULIN GLARGINE 100 UNITS/ML VIAL SQ SCH (21:00)
[2021-01-30] VITALS (8 sets, daily range): BP systolic 148–192; BP diastolic 46–62
[2021-01-30 05:11] LABS: BASOPHILS % 0.6 % (0.0-1.0); EOSINOPHILS # (AUTO) 0.2 (0.0-0.4); EOSINOPHILS % 2.7 % (0.0-6.0); HEMATOCRIT 29.5 % (34.2-44.1); HEMOGLOBIN 9.4 g/dL (12.0-16.0); LYMPHOCYTES % 15.1 % (18.0-39.1); MEAN CORPUSCULAR HEMOGLOBIN 28.2 pg (28-32); MEAN CORPUSCULAR HGB CONC 31.9 g/dL (31-35); MEAN CORPUSCULAR VOLUME 88.6 fL (81-99); MONOCYTES # (AUTO) 0.6 (0.2-0.8); MONOCYTES % 8.7 % (4.4-11.3); NEUTROPHILS # (AUTO) 4.5 (2.1-6.9); NEUTROPHILS % 72.3 % (38.7-80.0); PLATELET COUNT 208 x10e3/uL (140-360); RED BLOOD COUNT 3.33 x10e6/uL (3.6-5.1); RED CELL DISTRIBUTION WIDTH 15.4 % (11.7-14.4)
[2021-01-30 05:25] LABS: ANION GAP 10.5 mmol/L (8-16); CALCIUM 7.9 mg/dL (8.4-10.2); CREATININE, SERUM 0.79 mg/dL (0.57-1.11); POTASSIUM 3.5 mmol/L (3.5-5.1)
[2021-01-30] MEDS: CLONIDINE HCL 0.1 MG TAB PO SCH ×3 (06:00→21:45)
[2021-01-30] MEDS ORDERED: ONDANSETRON HCL 4 MG ORAL DISINTEGRATING TAB PO PRN (08:15)
[2021-01-30] MEDS: INSULIN LISPRO 100 UNIT/1 ML 3ML VIAL SQ SCH ×4 (09:16→21:00)
[2021-01-30] MEDS: AMLODIPINE BESYLATE 5 MG TAB PO SCH (09:19)
[2021-01-30] MEDS: SENNA-S TABLET PO SCH ×2 (09:19→17:05)
[2021-01-30] MEDS: CARVEDILOL 12.5 MG TAB PO SCH ×2 (09:19→17:05)
[2021-01-30] MEDS: CLOPIDOGREL BISULFATE 75 MG TAB PO SCH (09:19)
[2021-01-30] MEDS: ASPIRIN 81 MG CHEW TAB PO SCH (09:19)
[2021-01-30] MEDS: HYDROCODONE/APAP 10MG-325MG TAB PO PRN (10:42)
[2021-01-30] MEDS: ENOXAPARIN SOD INJ 40 MG/0.4 ML SYR SC SCH (17:05)
[2021-01-30] MEDS: SIMVASTATIN 40 MG TAB PO SCH (21:00)
[2021-01-30] MEDS ORDERED: INSULIN GLARGINE 100 UNITS/ML VIAL SQ SCH (21:00)
[2021-01-31] VITALS: BP 153/53
[2021-01-31 04:00] VITALS: BP 178/65
[2021-01-31] MEDS: CLONIDINE HCL 0.1 MG TAB PO SCH ×2 (06:00→14:00)
[2021-01-31] MEDS: INSULIN LISPRO 100 UNIT/1 ML 3ML VIAL SQ SCH ×3 (07:30→16:58)
[2021-01-31] MEDS: CARVEDILOL 12.5 MG TAB PO SCH ×2 (08:00→16:57)
[2021-01-31 08:04] VITALS: BP 183/69
[2021-01-31 08:30] VITALS: BP 183/69
[2021-01-31] MEDS: CLOPIDOGREL BISULFATE 75 MG TAB PO SCH (09:00)
[2021-01-31] MEDS: SENNA-S TABLET PO SCH ×2 (09:00→16:57)
[2021-01-31] MEDS: ASPIRIN 81 MG CHEW TAB PO SCH (09:00)
[2021-01-31] MEDS: HYDROMORPHONE 1MG/1ML INJ IV PRN (09:40)
[2021-01-31] MEDS: AMLODIPINE BESYLATE 5 MG TAB PO SCH (09:46)
[2021-01-31 10:55] VITALS: BP 169/54
[2021-01-31] MEDS: HYDROCODONE/APAP 10MG-325MG TAB PO PRN (11:57)
[2021-01-31] MEDS ORDERED: PIPERACILLIN/TAZOBACTAM 3.375 GM in SODIUM CHLORIDE 0.9% 50ML 50 ML IV SCH (14:00)
[2021-01-31] MEDS ORDERED: Vancomycin IV 1 GM in SODIUM CHLORIDE 0.9% 250ML 250 ML IV SCH (14:00)
[2021-01-31 15:30] VITALS: BP 136/60
[2021-02-01] MEDS ORDERED: CEFTRIAXONE 2 GM in SODIUM CHLORIDE 0.9% 100 ML IV SCH (09:00)
== END 2021-01-31 17:10 | DRG 240 ==
LOC: ER 05:11 → ERHOLD 06:40 → MED/SURG2 07:58
PROVIDERS: ADMIT Internal Medicine; ATTEND Internal Medicine
PROC: B40DYZZ Plain Radiography of Aorta and Bilateral Lower Extremity Arteries using Other Contrast (ICD-10-PCS; principal; 2021-01-22)
PROC: 047H35Z Dilation of Right External Iliac Artery with Two Drug-eluting Intraluminal Devices, Percutaneous Approach (ICD-10-PCS; 2021-01-22)
PROC: 047D341 Dilation of Left Common Iliac Artery with Drug-eluting Intraluminal Device, using Drug-Coated Balloon, Percutaneous Approach (ICD-10-PCS; 2021-01-22)
PROC: 047K34Z Dilation of Right Femoral Artery with Drug-eluting Intraluminal Device, Percutaneous Approach (ICD-10-PCS; 2021-01-22)
PROC: 0Y6M0Z9 Detachment at Right Foot, Partial 1st Ray, Open Approach (ICD-10-PCS; 2021-01-31)
PROC: 0Y6M0ZB Detachment at Right Foot, Partial 2nd Ray, Open Approach (ICD-10-PCS; 2021-01-31)
PROC: 0Y6M0ZC Detachment at Right Foot, Partial 3rd Ray, Open Approach (ICD-10-PCS; 2021-01-31)
PROC: 0Y6M0ZD Detachment at Right Foot, Partial 4th Ray, Open Approach (ICD-10-PCS; 2021-01-31)
PROC: 0Y6M0ZF Detachment at Right Foot, Partial 5th Ray, Open Approach (ICD-10-PCS; 2021-01-31)
PROC: 0JXQ0ZC Transfer Right Foot Subcutaneous Tissue and Fascia with Skin, Subcutaneous Tissue and Fascia, Open Approach (ICD-10-PCS; 2021-01-31)
PROC: 0KBV0ZZ Excision of Right Foot Muscle, Open Approach (ICD-10-PCS; 2021-01-31)
DX: E11.52 Type 2 diabetes mellitus with diabetic peripheral angiopathy with gangrene (principal); I70.261 Atherosclerosis of native arteries of extremities with gangrene, right leg; I50.30 Unspecified diastolic (congestive) heart failure; L03.115 Cellulitis of right lower limb; I69.351 Hemiplegia and hemiparesis following cerebral infarction affecting right dominant side; L97.418 Non-pressure chronic ulcer of right heel and midfoot with other specified severity; M86.8X7 Other osteomyelitis, ankle and foot; E11.628 Type 2 diabetes mellitus with other skin complications; E11.40 Type 2 diabetes mellitus with diabetic neuropathy, unspecified; I11.0 Hypertensive heart disease with heart failure; I25.10 Atherosclerotic heart disease of native coronary artery without angina pectoris; Z95.1 Presence of aortocoronary bypass graft; E11.621 Type 2 diabetes mellitus with foot ulcer; Z79.899 Other long term (current) drug therapy; E78.00 Pure hypercholesterolemia, unspecified; I87.2 Venous insufficiency (chronic) (peripheral); E11.69 Type 2 diabetes mellitus with other specified complication
CPT/HCPCS: 36247; 36415; 37220; 37222; 37224; 71045; 75635; 75710; 76937; 80048; 80053; 80061; 80202; 82270; 82550; 82553; 82607; 82746; 82948; 83036; 83540; 83605; 83735; 83880; 84100; 84443; 84466; 84484; 85025; 85610; 87040; 87071; 87075; 87186; 87205; 88304; 88311; 90714; 93005; 93926; 97139; 99152; 99153; 99251; 99284; C1760; C1769; J0696; J0720; J1170; J1650; J2001; J2250; J2270; J2405; J2543; J3010; J3370; J7030; J7040; J7050; Q9967

== ENCOUNTER 2022-04-03 15:04 | Emergency (ER) | payer MEDICARE ==
[~2022-04-03] VITALS: Ht 165.1 cm; Wt 90.7 kg
[~2022-04-03 15:04] MED LIST changes: +ASPIRIN81 MG PO; +CLONIDINE HCL0.1 MG PO; -IOPAMIDOL 370 MG/ML 200 ML INFUS..BTL INJ ONE; +METFORMIN HCL500 MG PO; +METOPROLOL TART25 MG PO; +PLAVIX75 MG PO; +SIMVASTATIN40 MG PO; -SODIUM CHLORIDE 0.9% 100 ML 100 ML ONE
[2022-04-03] MEDS ORDERED: ONDANSETRON HCL INJ 2MG/ML 2ML 2 MG/ML VIAL IV STA (15:06)
[2022-04-03] MEDS ORDERED: LABETALOL HCL 5 MG/ML 20ML VIAL IV STA (15:14)
[2022-04-03] MEDS ORDERED: SODIUM CHLORIDE 0.9% 1000ML 1,000 ML IV ONE (15:15)
[2022-04-03 16:18] LABS: BASOPHILS % 0.4 % (0.0-1.0); EOSINOPHILS % 0.1 % (0.0-6.0); HEMATOCRIT 40.4 % (34.2-44.1); LYMPHOCYTES # (AUTO) 0.9 (1.0-3.2); LYMPHOCYTES % 11.6 % (18.0-39.1); MEAN CORPUSCULAR HEMOGLOBIN 28.9 pg (28-32); MEAN CORPUSCULAR HGB CONC 32.2 g/dL (31-35); MEAN CORPUSCULAR VOLUME 89.8 fL (81-99); MONOCYTES # (AUTO) 0.4 (0.2-0.8); MONOCYTES % 5.7 % (4.4-11.3); NEUTROPHILS # (AUTO) 6.3 (2.1-6.9); NEUTROPHILS % 82.1 % (38.7-80.0); PLATELET COUNT 183 x10e3/uL (140-360); RED CELL DISTRIBUTION WIDTH 14.2 % (11.7-14.4)
[2022-04-03 16:38] LABS: ALBUMIN 3.3 g/dL (3.5-5.0); ALBUMIN/GLOBULIN RATIO 0.8 (0.8-2.0); ANION GAP 16.9 mmol/L (8-16); CALCIUM 9.4 mg/dL (8.4-10.2); CREATININE, SERUM 0.93 mg/dL (0.57-1.11); POTASSIUM 4.9 mmol/L (3.5-5.1)
[2022-04-03] MEDS ORDERED: HYDRALAZINE HCL 20 MG/ML VIAL IV STA (18:06)
== END 2022-04-03 19:12 | disposition home or self-care (01) ==
LOC: ER 15:07
DX: R11.2 Nausea with vomiting, unspecified (principal); R03.0 Elevated blood-pressure reading, without diagnosis of hypertension; E11.65 Type 2 diabetes mellitus with hyperglycemia; I10 Essential (primary) hypertension; I73.9 Peripheral vascular disease, unspecified; K21.9 Gastro-esophageal reflux disease without esophagitis; I25.2 Old myocardial infarction; Z86.73 Personal history of transient ischemic attack (TIA), and cerebral infarction without residual deficits; Z95.1 Presence of aortocoronary bypass graft
CPT/HCPCS: 36415; 80053; 83690; 85025; 93005; 99284; J2405; J3490; J7030

== ENCOUNTER 2022-05-03 07:39 | Emergency (ER) | payer MEDICARE ==
[~2022-05-03] VITALS: Ht 165.1 cm; Wt 90.7 kg
[2022-05-03 08:31] LABS: BASOPHILS % 0.4 % (0.0-1.0); EOSINOPHILS # (AUTO) 0.2 (0.0-0.4); EOSINOPHILS % 3.2 % (0.0-6.0); HEMATOCRIT 42.5 % (34.2-44.1); HEMOGLOBIN 13.2 g/dL (12.0-16.0); LYMPHOCYTES # (AUTO) 1.5 (1.0-3.2); LYMPHOCYTES % 28.6 % (18.0-39.1); MEAN CORPUSCULAR HEMOGLOBIN 28.3 pg (28-32); MEAN CORPUSCULAR HGB CONC 31.1 g/dL (31-35); MEAN CORPUSCULAR VOLUME 91.2 fL (81-99); MONOCYTES # (AUTO) 0.4 (0.2-0.8); MONOCYTES % 8.2 % (4.4-11.3); NEUTROPHILS # (AUTO) 3.2 (2.1-6.9); NEUTROPHILS % 59.4 % (38.7-80.0); PLATELET COUNT 174 x10e3/uL (140-360); RED BLOOD COUNT 4.66 x10e6/uL (3.6-5.1); RED CELL DISTRIBUTION WIDTH 13.8 % (11.7-14.4)
[2022-05-03 08:37] LABS: BACTERIA,URINE MANY /HPF; CLARITY,URINE TURBID (CLEAR); COLOR,URINE YELLOW (YELLOW); KETONES,URINE NEGATIVE (NEGATIVE); LEUKOCYTE ESTERASE ,URINE SMALL (NEGATIVE); NITRITE,URINE POSITIVE (NEGATIVE); PROTEIN,URINE DIPSTICK 2+ (NEGATIVE); RBC,URINE >50 /HPF (0-5); URINE UROBILINOGEN 1 mg/dL (0.2 - 1); WBC,URINE (MAN) >50 /HPF (0-5)
[2022-05-03 08:38] LABS: EPITHELIAL CELLS,URINE FEW /LPF
[2022-05-03] MEDS: HYDRALAZINE HCL 20 MG/ML VIAL IV STA ×2 (08:47→10:21)
[2022-05-03 08:50] LABS: ALBUMIN 3.1 g/dL (3.5-5.0); ALBUMIN/GLOBULIN RATIO 0.8 (0.8-2.0); ANION GAP 12.5 mmol/L (8-16); CALCIUM 9.5 mg/dL (8.4-10.2); CREATININE, SERUM 0.86 mg/dL (0.57-1.11); POTASSIUM 4.5 mmol/L (3.5-5.1)
[2022-05-03 08:57] LABS: CREATINE KINASE MB 0.7 ng/mL (0-5.0)
[2022-05-03] MEDS ORDERED: CALCIUM GLUC 1 G/50 ML NACL 50 ML IV ONE (09:00)
[2022-05-03] MEDS ORDERED: GLUCAGON FOR INJ 1 MG VIAL IV NR (09:00)
[2022-05-03] MEDS ORDERED: IOPAMIDOL 370 MG/ML 100 ML INFUS..BTL INJ ONE (09:14)
[2022-05-03] MEDS ORDERED: ASPIRIN 325 MG TAB PO NR (12:15)
== END 2022-05-03 14:13 | disposition other institution (70) ==
LOC: ER 07:45
DX: H53.2 Diplopia (principal); H53.34 Suppression of binocular vision; R00.8 Other abnormalities of heart beat; N39.0 Urinary tract infection, site not specified; I16.0 Hypertensive urgency; E11.40 Type 2 diabetes mellitus with diabetic neuropathy, unspecified; I10 Essential (primary) hypertension; I25.10 Atherosclerotic heart disease of native coronary artery without angina pectoris; K21.9 Gastro-esophageal reflux disease without esophagitis; Z20.822 Contact with and (suspected) exposure to COVID-19; R94.31 Abnormal electrocardiogram [ECG] [EKG]; I25.2 Old myocardial infarction; Z86.73 Personal history of transient ischemic attack (TIA), and cerebral infarction without residual deficits; Z95.1 Presence of aortocoronary bypass graft
CPT/HCPCS: 36415; 70496; 70498; 80053; 81001; 82550; 82553; 84484; 85025; 93005; 99283; J0360; J0696; J1610; Q9967; U0002